=== PATIENT | male | born 1990 | race Caucasian/White ===

== ENCOUNTER 2016-12-18 08:17 | Emergency (ER) | payer MEDICAID, OTHER, SELFPAY ==
[~2016-12-18] VITALS: Ht 175.3 cm; Wt 93.3 kg
[2016-12-18 08:19] VITALS: BP 151/91
[2016-12-18] MEDS ORDERED: FLUORESCEIN OPHTHALMIC 1 MG STRIP ONE (08:37)
[2016-12-18] MEDS ORDERED: PROPARACAINE OPHTH 0.5%, 15ML ONE (08:37)
[2016-12-18] MEDS ORDERED: DIPH,PERTUSS(ACELL),TET VAC/PF 0.5 ML IM-VACC ONE ×2 (09:30→09:35)
== END 2016-12-18 09:46 | disposition home or self-care (01) ==
LOC: ED 09:42
DX: S05.01XA Injury of conjunctiva and corneal abrasion without foreign body, right eye, initial encounter (principal); E11.9 Type 2 diabetes mellitus without complications; X58.XXXA Exposure to other specified factors, initial encounter; Y93.89 Activity, other specified; Y92.89 Other specified places as the place of occurrence of the external cause; Y99.8 Other external cause status
CPT/HCPCS: 90471; 90715